=== PATIENT | male | born 1990 | race Caucasian/White ===

== ENCOUNTER 2021-12-26 19:40 | Emergency (ER) | payer BC ==
[~2021-12-26] VITALS: Ht 170.2 cm; Wt 68.0 kg
[2021-12-26 19:40] VITALS: BP 134/78
[2021-12-26] MEDS ORDERED: IBUP800T26 PO (22:50)
== END 2021-12-26 23:05 | disposition home or self-care (01) ==
LOC: ER 19:40
DX: S62.002A Unspecified fracture of navicular [scaphoid] bone of left wrist, initial encounter for closed fracture (principal); F17.210 Nicotine dependence, cigarettes, uncomplicated; V00.131A Fall from skateboard, initial encounter; Y93.89 Activity, other specified; Y92.89 Other specified places as the place of occurrence of the external cause; Y99.8 Other external cause status
CPT/HCPCS: 29125; 73110

== ENCOUNTER 2022-01-26 16:15 | Emergency (ER) | payer BC ==
[~2022-01-26] VITALS: Ht 167.6 cm; Wt 62.9 kg
[~2022-01-26 16:15] MED LIST: IBUP800T26 PO
[2022-01-26 19:52] VITALS: BP 138/64
== END 2022-01-26 19:55 | disposition home or self-care (01) ==
LOC: ER 16:15
DX: S20.212A Contusion of left front wall of thorax, initial encounter (principal); F12.10 Cannabis abuse, uncomplicated; X58.XXXA Exposure to other specified factors, initial encounter; Y93.89 Activity, other specified; Y92.89 Other specified places as the place of occurrence of the external cause; Y99.8 Other external cause status
CPT/HCPCS: 71101

== ENCOUNTER 2023-06-02 05:13 | Emergency (ER) | payer BC ==
[~2023-06-02] VITALS: Ht 175.3 cm; Wt 72.7 kg
[~2023-06-02 05:13] MED LIST changes: +IBUP-1455 PO; -IBUP800T26 PO
[2023-06-02 07:47] VITALS: BP 144/93; PULSE 96; RESP 18; TEMP 97.6; O2SAT 99
[2023-06-02] MEDS ORDERED: ACET500T58 PO (08:17)
[2023-06-02] MEDS ORDERED: IBUP1TAB5 PO (08:17)
== END 2023-06-02 08:29 | disposition home or self-care (01) ==
LOC: ER 05:13
DX: S93.691A Other sprain of right foot, initial encounter (principal); F15.90 Other stimulant use, unspecified, uncomplicated; Z79.899 Other long term (current) drug therapy; W22.8XXA Striking against or struck by other objects, initial encounter; Y93.89 Activity, other specified; Y92.89 Other specified places as the place of occurrence of the external cause; Y99.8 Other external cause status
CPT/HCPCS: 73630